=== PATIENT | male | born 1940 | race Caucasian/White ===

== ENCOUNTER → 2017-06-19 | Outpatient (CLI) | payer OTHER ==
[~2017-06-19] MED LIST: ALDACTONE25 MG PO; AMARYL2 MG PO; CARVEDILOL25 MG PO; CELLCEPT500 MG PO; CINNAMON PLUS1 EACH PO; COREG PO; DIABETA 2.5MG2.5 MG PO; FENOFIBRATE160 MG PO; FLOMAX0.4 MG PO; GLUCOPHAGE1000 MG PO; GLUCOTROL5 MG PO; KEPPRA 500 MG500 M1 PO; KEPPRA750 MG PO; LANOXIN 0.250.25 MG PO; LIPITOR80 MG PO; LISINOPRIL10 MG PO; LISINOPRIL20 MG PO; LO-DOSE ASPIRIN81 M1 PO; MOM PO; NORCO 5-325 TA1 EACH PO; POTASSIUM20; PROSCAR 5MG TABL5 MG PO; PROTONIX40 M2 PO; SLOW-MAG64 M1 GT; TYLENOL325 MG PO; VASCEPA1 GM PO
--- NOTE | ~2017-06-19 | 2DMMODE ---
[facility] [place] [address] 2 D/M-MODE ECHOCARDIOGRAM Name: CARLOTTABRADEN WILLIAM Room #: REG [facility]#: [id number] Admission: 06/19/17 Attend Phys: Arjun Nguyen Discharge: Date of : 44 Date of Service: 06/19/17 1138 Report #: [id number] THIS REPORT FOR: //name// APPROVED REPORT Study performed: 06/19/2017 09:09:41 EXAM: Comprehensive 2D, Doppler, and color-flow Echocardiogram Patient Location: Echo lab Status: routine BSA: 2.09 HR: 79 bpm BP: 129/72 mmHg Other Information Study Quality: Good Indications Pacemaker Cardiomyopathy 2D Dimensions RVDd: 31.87 mm LVEF(%): 27.50 (>50%) IVSd: 8.79 (7-11mm) LVOT Diam: 22.80 (18-24mm) LVDd: 66.30 mm PWd: 8.46 (7-11mm) Ascending Ao: 31.97 (22-36mm) LVDs: 57.58 (25-40mm) Aortic Root: 31.57 mm IVC: 18.00 mm Carrillo's LVEF: 27.50 % Volumes Left Atrial Volume (Systole) Single Plane 4CH: 55.04 mL Single Plane 2CH: 48.51 mL LA ESV Index: 27.00 mL/m2 Aortic Valve AoV Peak Vincent.: 1.59 m/s AO Peak Gr.: 10.05 mmHg LVOT Max P.16 mmHg LVOT Max V: 1.02 m/s ROE Vmax: 2.63 cm2 Mitral Valve E/A Ratio: 0.4 MV Decel. Time: 283.78 ms [facility] [place] [place] [address] 2 D/M-MODE ECHOCARDIOGRAM Name: BRADEN LAGUERRE Room #: [facility] Thuy#: [id number] Admission: 06/19/17 Attend Phys: Arjun Nguyen Discharge: Date of : 44 Date of Service: 06/19/17 1138 Report #: [id number] MV E Max Vincent.: 0.46 m/s MV A Vincent.: 1.14 m/s MV PHT: 82.30 ms IVRT: 152.25 ms Pulmonary Valve PV Peak Vincent.: 1.00 m/s PV Peak Gr.: 3.99 mmHg Pulmonary Vein P Vein S: 0.40 m/s P Vein A: 0.29 m/s P Vein D: 0.59 m/s P Vein A Dur.: 96.9 msec P Vein S/D Ratio: 0.68 Tricuspid Valve TR Peak Vincent.: 2.72 m/s RAP Estimate: 5.00 mmHg TR Peak Gr.: 29.67 mmHg PA Pressure: 35.00 mmHg Left Ventricle Left ventricle is moderately dilated. There is normal left ventricular wall thickness. Left ventricular systolic function is severely decreased. LVEF is 25-30%. Transmitral Doppler flow pattern suggests impaired LV relaxation. Right Ventricle The right ventricle is normal size. The right ventricular systolic function is normal. Catheter is present in the right ventricle. Atria The left atrium size is normal. The right atrium size is normal. Aortic Valve Mild aortic valve sclerosis. Trace aortic regurgitation. There is no aortic valvular stenosis. Mitral Valve The mitral valve is normal in structure. Moderate mitral regurgitation. No evidence of mitral valve stenosis. Tricuspid Valve The tricuspid valve is normal in structure. Trace tricuspid regurgitation. PAP is estimated at 35 mmHg. Pulmonic Valve The pulmonary valve is normal in structure. Mild pulmonic [address] [address] 2 D/M-MODE ECHOCARDIOGRAM Name: BRADEN LAGUERRE Room #: REG CL Thuy#: [id number] Admission: 06/19/17 Attend Phys: [facility]: Date of : 44 Date of Service: 06/19/17 1138 Report #: [id number] regurgitation. Great Vessels The aortic root is normal in size. IVC is normal in size and collapses >50% with inspiration. Pericardium There is no pericardial effusion. <Conclusion> Left ventricle is moderately dilated. LVEF is 25-30%. The right ventricle is normal size. Catheter is present in the right ventricle. The right atrium size is normal. Mild aortic valve sclerosis. Trace aortic regurgitation. The mitral valve is normal in structure. Moderate mitral regurgitation. The tricuspid valve is normal in structure. Trace tricuspid regurgitation. PAP is estimated at 35 mmHg. The pulmonary valve is normal in structure. Mild pulmonic regurgitation. There is no pericardial effusion. <ELECTRONICALLY SIGNED> By: Rufus Price MD 06/19/17 1138 1138 1138 Rufus Price MD /INF
== END ==
LOC: CV 09:50
DX: I34.0 Nonrheumatic mitral (valve) insufficiency (principal); I37.1 Nonrheumatic pulmonary valve insufficiency; M17.11 Unilateral primary osteoarthritis, right knee; E11.8 Type 2 diabetes mellitus with unspecified complications; Z95.0 Presence of cardiac pacemaker

== ENCOUNTER → 2017-08-11 | Outpatient (CLI) | payer OTHER ==
[~2017-08-11] VITALS: Ht 177.8 cm; Wt 88.5 kg
[~2017-08-11] MED LIST changes: +AMARYL4 MG PO; +BACTRIM DS TAB1 EACH PO; +DEMADEX20 MG PO; +FOLIC ACID1 MG PO; -SLOW-MAG64 M1 GT; +SLOW-MAG64 M1 PO; +SPIRONOLACTONE25 M1 PO; +TUMS PO; +VITAMIN D3400 UNIT PO
--- NOTE | ~2017-08-11 | P ---
[facility] [place] [place] [address] PROCEDURE REPORT Name: BRADEN LAGUERRE Room #: REG [facility].#: [id number] Admission: 08/11/17 Attend Phys: Arjun Nguyen MD Discharge: Date of : 44 Report #: [id number] THIS REPORT FOR: //name// CC: Jason Fontanez [facility] physician/PCP Arjun Nguyen DATE OF SERVICE: 08/11/2017 IMPLANTABLE CARDIOVERTER DEFIBRILLATOR GENERATOR EXCHANGE HISTORY: The patient is a 77-year-old status post ICD implantation. His ICD is at the elective replacement interval and was here for possible upgrade to a Bi-V ICD with generator exchange. ANESTHESIA: The patient underwent MAC anesthesia with no anesthesia-related complications. DESCRIPTION OF PROCEDURE: The patient underwent informed consent. We discussed the details of the procedure including the risk, which include but not limited to bleeding, infection, vascular damage, cardiac perforation and pneumothorax. He understood these risks and is willing to proceed. As such, the patient was brought to the EP laboratory and unsedated state. Before prepping he underwent a venogram to rule out occlusion of the left axillary vein. Unfortunately, there was evidence of an occlusion noted at the insertion sites of the lead into the subclavian vessel. There was collateralization around this occlusion, but the distance between the distal occlusion and site of collateralization was a large distance, which I do not think I could transverse. As such, I discussed these findings with the and we decided to proceed with just an ICD generator exchange, which is what had been performed last time several years ago. Of note, under fluoroscopy, the patient does have a dual-chamber ICD and there is an LV lead that appears to be dislodged and is likely sitting at the floor of the right atrium. Of note, this has been at this site since its initial implantation in 2004. As such, the patient was prepped and draped in a sterile fashion, received IV antibiotics. I injected lidocaine and made an incision. The chronic pocket was opened. The old device was removed from the pocket and disconnected from the leads. The new device was connected and the leads tested and found to be functioning normally. The patient does have a [employer] Jayce lead. There were no issues with noise or impedances on any portion of the lead. A new device was placed in the pocket. The pocket was irrigated with vancomycin. The pocket was closed in 3 layers using 2-0 for the deep layer, 3-0 for the mid layer and 4-0 for the subcuticular. Surgical glue was placed to the outer skin layer. The patient awoke neurologically and hemodynamically intact. No complications and no significant bleeding. The explanted device was a [employer] model number [id number], serial number [id number] [id number] PROCEDURE REPORT Name: BRADEN LAGUERRE Room #: REG CL Thuy#: [id number] Admission: 08/11/17 Attend Phys: Arjun Nguyen MD Discharge: Date of : 44 Report #: [id number], implanted on 08/28/2009. The newly implanted device was [employer] model number [id number], serial number [id number]. The atrial lead was a Medtronic model number 5076, serial number [id number]. The RV lead was a Medtronic model number 6947, serial number [id number]. The LV lead was a Med[employer]onic model number 4194, serial number [id number]. These 3 existing leads were all implanted on 06/24/2004. The atrial lead demonstrated a P-wave of 3.5 millivolts, pacing impedance of 440 ohms and the pacing threshold of 0.5 volts at 0.5 milliseconds. The RV lead demonstrated an R-wave of 11.6 millivolts, pacing impedance 700 and a pacing impedance of 0.75 volts at 0.5 milliseconds. The shock impedances on this lead were normal. The LV lead has been previously capped and left in the pocket. The device was programmed to the DDD 60-120 mode. The VF zone was set at greater than 214 beats per minute. The VT2 zone was set at 187 beats per minute and the VT1 zone was set at 166 beats per minute. CONCLUSIONS: 1. Successful ICD generator exchange. 2. Satisfactory atrial and right ventricular pacing and sensing thresholds. 3. No attempt at upgrade to a Bi-V ICD given the long occlusion noted on venography. By: [id number] Arjun Nguyen MD /nt
[2017-08-11 10:18] VITALS: BP 101/53
[2017-08-11 11:00] LABS: HEMATOCRIT 42.9 % (42.0-52.0); HEMOGLOBIN 14.5 gm/dL (14.0-18.0); MCH 32.6 pg (26.0-34.0); MCHC 33.9 g/dL (28.0-37.0); MCV 96.2 fL (80.0-100.0); RBC 4.46 mil/uL (4.50-6.00); RDW 14.8 % (10.5-14.5); WBC 6.8 thou/uL (4.0-11.0)
[2017-08-11 11:11] LABS: CALCIUM 10.1 mg/dL (8.5-10.1); CREATININE 1.2 mg/dL (0.7-1.3); POTASSIUM 4.4 mmol/L (3.5-5.1)
[2017-08-11 11:13] LABS: INR 1.1; PROTIME 11.6 Seconds (9.3-11.4)
== END | disposition home or self-care (01) ==
LOC: CATH 09:49
PROVIDERS: Internal Medicine Cardiovascular Disease
DX: Z45.02 Encounter for adjustment and management of automatic implantable cardiac defibrillator (principal); I11.0 Hypertensive heart disease with heart failure; I50.9 Heart failure, unspecified; E78.5 Hyperlipidemia, unspecified; E11.9 Type 2 diabetes mellitus without complications; I42.9 Cardiomyopathy, unspecified; I48.91 Unspecified atrial fibrillation; M19.90 Unspecified osteoarthritis, unspecified site; G47.33 Obstructive sleep apnea (adult) (pediatric); Z79.01 Long term (current) use of anticoagulants; Z95.5 Presence of coronary angioplasty implant and graft; Z98.890 Other specified postprocedural states; Z79.899 Other long term (current) drug therapy; Z96.652 Presence of left artificial knee joint; Z79.82 Long term (current) use of aspirin
CPT/HCPCS: 62110; 62900; 70005

== ENCOUNTER 2017-12-28 06:45 | Observation (INO) | payer OTHER ==
[~2017-12-28] VITALS: Ht 180.3 cm; Wt 95.3 kg
--- NOTE | ~2017-12-28 | EKG ---
[place] [address] [facility] [place] [address] ELECTROCARDIOGRAM REPORT Name: BRADEN LAGUERRE Room #: REG [id number] Admission: 12/28/17 Attend Phys: Arjun Nguyen MD Discharge: Date of : 44 Report #: [id number] THIS REPORT FOR: //name// [facility] Test Date: 2017-12-28 Test Time: 08:22:55 Pat Name: BRADEN LAGUERRE Department: Room: Gender: [employer] Officer: : 1940 Requested By: Arjun Nguyen Order Number: [id number] MD: Jason Fontanez Measurements Intervals [place] Rate: 80 P: 69 MT: 175 QRS: -32 QRSD: 166 T: 185 QT: 431 QTc: 498 Interpretive Statements Sinus rhythm Ventricular premature complex Left bundle branch block Compared to ECG 06/17/2014 12:06:05 Ventricular premature complex(es) now present Electronically Signed On 12-28-2017 8:47:08 CDT by Jason Fontanez [email or web address] <ELECTRONICALLY SIGNED> By: Jason Fontanez MD, [facility] 12/28/17 0847 1 1 Jason Fontanez MD, [facility] /EPI
--- NOTE | ~2017-12-28 | P ---
[facility] [place] [address] [place] [address] PROCEDURE REPORT Name: BRADEN LAGUERRE Room #: 212-P [facility] M.Chau#: [id number] Admission: 12/28/17 Attend Phys: Arjun Nguyen MD Discharge: Date of : 44 Report #: [id number] THIS REPORT FOR: //name// CC: ADE Fontanez FAM unknown Arjun Nguyen DATE OF SERVICE: 12/28/2017 PREOPERATIVE DIAGNOSES: 1. Nonischemic cardiomyopathy. 2. Left bundle-branch block. 3. [place] [employer] functional class 3 heart failure. 4. Recent extraction of an ICD due to infection. HISTORY: The patient is a 77-year-old male with history of nonischemic cardiomyopathy, who has an EF of less than 35%, left bundle-branch block, and [place] [employer] functional class 2-3 heart failure symptoms. He recently underwent ICD generator exchange. At that time, he was going to undergo upgrade to a biventricular ICD, but was found to have an occlusion on the left side. 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 That hospitalization for extraction was complicated by worsening renal insufficiency. He has finished a course of antibiotics and is here for biventricular ICD implantation on the right side. ANESTHESIA: The patient underwent MAC anesthesia with no anesthesia-related complications. PROCEDURE: The patient underwent informed consent. We discussed the details of the procedure including the risks, which include but not limited to bleeding, infection, vascular damage, cardiac perforation, and pneumothorax. He understood these risks and is willing to proceed. The patient was brought to the EP laboratory in the fasting and nonsedated state and prepped and draped in a sterile fashion. He underwent a right-sided venogram, which showed patency of the right axillary vein and superior vena cava. He was placed on IV vancomycin for antibiotic prophylaxis, prepped and draped in a sterile fashion. I then injected lidocaine at the area below the right clavicle. Incision was made and a pocket was created over the prepectoral fascia. Access was obtained three times to the right axillary vein using the extrathoracic approach with the sheaths positioned using the modified Seldinger technique. Next, the RV lead was placed in the right ventricular apex with adequate pacing and sensing thresholds. An atrial lead was placed on the right [facility] [address] [place] [address] PROCEDURE REPORT Name: BRADEN LAGUERRE Room #: 212-P [id number] Admission: 12/28/17 Attend Phys: Arjun Nguyen MD Discharge: Date of : 44 Report #: [id number] atrial appendage as well. These leads were then sutured to the prepectoral fascia. Next, I placed a coronary sinus guide sheath into the right atrium, and after a few minutes, obtained access to the middle cardiac vein. This middle cardiac vein filled the coronary sinus proper retrograde and I was able to position my sheath into the coronary sinus proper. Injection from the coronary sinus demonstrated that there was a nice large posterolateral branch and I was able to deliver a quadripolar lead into the distal aspect of this vessel. There was adequate pacing and sensing thresholds throughout. The guide sheath was split and the lead remained in position. The LV lead was sutured to the prepectoral fascia using Ethibond as well. The leads were connected to the device and tested, and all leads were found to be functioning normally. The pocket was irrigated with vancomycin and then the pocket was closed in 3 layers using 2-0 for the deep layer, 3-0 for the middle layer, and 4-0 for the subcuticular. Surgical glue was placed to the outer skin layer. The patient awoke hemodynamically and neurologically intact with no complications and no significant bleeding. The implanted ICD was a [employer] model # [id number], serial #[id number]. The atrial lead was a [employer] model #2088TC, 46 cm, serial #[id number] with a P-wave of 1 millivolt, pacing impedance of 480 ohms, and a pacing threshold 0.75 volts at 0.5 milliseconds. The RV lead was a [employer] model #7120, 58 cm, serial #[id number]. This lead demonstrated R waves greater than 12 millivolts, pacing impedance of 580 ohms, and the pacing threshold 0.5 volts at 0.5 milliseconds. The LV lead demonstrated a basal pacing threshold of 2 volts at 1 millisecond with pacing impedance of 710 ohms. The device was programmed to the DDD 60-130 mode. The LV lead was pacing at its most basal configuration with the LV lead pacing 55 milliseconds preRV pacing. This pacing configuration was utilized as it resulted in the most narrowing of the QRS complex down to 130 milliseconds. The ICD therapies were programmed with a VT zone of 180-220 beats per minute with ATP x 6 followed by max output shocks. The VF zone was set at greater than 222 beats per minute with ATP while charging followed by max output shocks. CONCLUSIONS: 1. Successful biventricular ICD implantation. 2. Satisfactory atrial, right ventricular, and left ventricular pacing and sensing thresholds. By: [id number] MD gee Alanis
[2017-12-28 07:24] VITALS: BP 113/64
[2017-12-28 07:27] LABS: ABSOLUTE NEUTROPHILS 2.7 thou/uL (1.4-8.2); BASOPHILS 1.6 % (0.0-2.0); EOSINOPHILS 10.3 % (0.0-3.0); HEMATOCRIT 41.5 % (42.0-52.0); HEMOGLOBIN 13.8 gm/dL (14.0-18.0); LYMPHOCYTES 37.8 % (24.0-44.0); MCH 32.4 pg (26.0-34.0); MCHC 33.2 g/dL (28.0-37.0); MCV 97.8 fL (80.0-100.0); MONOCYTES 11.1 % (1.0-8.0); PLATELET COUNT 180 thou/uL (150-400); POLYS 39.2 % (36.0-66.0); RBC 4.25 mil/uL (4.50-6.00); RDW 14.3 % (10.5-14.5); WBC 6.8 thou/uL (4.0-11.0)
[2017-12-28] MEDS ORDERED: REPATHA SU140 MG/1 M IM (07:28)
[2017-12-28] MEDS ORDERED: CARVEDILOL3.125 MG PO (07:28)
[2017-12-28] MEDS ORDERED: FENOFIBRATE160 MG PO (07:31)
[2017-12-28 07:36] LABS: CALCIUM 9.4 mg/dL (8.5-10.1); CREATININE 1.4 mg/dL (0.7-1.3); POTASSIUM 4.4 mmol/L (3.5-5.1)
[2017-12-28] MEDS ORDERED: UNICOMPLEX M TA1 TA1 PO (07:37)
[2017-12-28] MEDS ORDERED: CRESTOR40 MG PO (07:37)
[2017-12-28 07:41] LABS: ALBUMIN 3.9 g/dL (3.4-5.0); TOTAL BILIRUBIN 0.5 mg/dL (<0.1-1.0); TOTAL PROTEIN 7.2 g/dL (6.4-8.2)
[2017-12-28 07:50] LABS: APTT 28.7 Seconds (24.5-32.8); INR 1.1
[2017-12-28 17:13] VITALS: BP 93/54
[2017-12-28 19:58] VITALS: BP 102/60
[2017-12-29 00:17] VITALS: BP 96/55
[2017-12-29 04:12] VITALS: BP 96/70
[2017-12-29 07:22] VITALS: BP 112/63
[2017-12-29 12:01] VITALS: BP 135/58
[2017-12-29 12:31] VITALS: BP 135/58
== END 2017-12-29 13:40 | disposition home or self-care (01) ==
LOC: CATH 06:45 → 2N 12:37 → ENTRNSPT 12-29 13:30 → 2N 12-29 13:40
PROVIDERS: Internal Medicine Cardiovascular Disease
DX: I42.8 Other cardiomyopathies (principal); I50.22 Chronic systolic (congestive) heart failure; T82.7XXD Infection and inflammatory reaction due to other cardiac and vascular devices, implants and grafts, subsequent encounter; E78.00 Pure hypercholesterolemia, unspecified; G47.30 Sleep apnea, unspecified; M19.90 Unspecified osteoarthritis, unspecified site; I34.0 Nonrheumatic mitral (valve) insufficiency; Z98.890 Other specified postprocedural states; Z72.89 Other problems related to lifestyle; Z95.810 Presence of automatic (implantable) cardiac defibrillator

== ENCOUNTER → 2019-04-30 | Outpatient (CLI) | payer OTHER ==
[~2019-04-30] MED LIST changes: +CARVEDILOL3.125 MG PO; +CRESTOR40 MG PO; +REPATHA SU140 MG/1 M IM; +UNICOMPLEX M TA1 TA1 PO
== END ==
LOC: SJCVC 14:33
DX: R94.31 Abnormal electrocardiogram [ECG] [EKG] (principal); I48.0 Paroxysmal atrial fibrillation; I42.9 Cardiomyopathy, unspecified; I50.42 Chronic combined systolic (congestive) and diastolic (congestive) heart failure; E78.5 Hyperlipidemia, unspecified; I44.7 Left bundle-branch block, unspecified; G04.90 Encephalitis and encephalomyelitis, unspecified; Z95.810 Presence of automatic (implantable) cardiac defibrillator

== ENCOUNTER → 2020-01-13 | Outpatient (CLI) | payer OTHER | LOC: SJCVCIMAG 07:13 | PROVIDERS: ATTEND Internal Medicine | DX: I08.8 Other rheumatic multiple valve diseases (principal); R94.31 Abnormal electrocardiogram [ECG] [EKG]; I42.9 Cardiomyopathy, unspecified; I48.0 Paroxysmal atrial fibrillation; I50.22 Chronic systolic (congestive) heart failure; I44.7 Left bundle-branch block, unspecified; G04.90 Encephalitis and encephalomyelitis, unspecified; G47.33 Obstructive sleep apnea (adult) (pediatric); Z95.810 Presence of automatic (implantable) cardiac defibrillator; Z79.899 Other long term (current) drug therapy ==

== ENCOUNTER → 2020-07-13 | Outpatient (CLI) | payer OTHER | LOC: SJCVC 13:32 | PROVIDERS: ATTEND Internal Medicine | DX: R94.31 Abnormal electrocardiogram [ECG] [EKG] (principal); I42.9 Cardiomyopathy, unspecified; I48.0 Paroxysmal atrial fibrillation; I50.22 Chronic systolic (congestive) heart failure; E78.5 Hyperlipidemia, unspecified; I44.7 Left bundle-branch block, unspecified; G04.90 Encephalitis and encephalomyelitis, unspecified; G47.33 Obstructive sleep apnea (adult) (pediatric); E11.9 Type 2 diabetes mellitus without complications; E78.00 Pure hypercholesterolemia, unspecified; G47.30 Sleep apnea, unspecified; Z95.810 Presence of automatic (implantable) cardiac defibrillator; Z98.890 Other specified postprocedural states; Z88.8 Allergy status to other drugs, medicaments and biological substances; Z79.899 Other long term (current) drug therapy; Z82.49 Family history of ischemic heart disease and other diseases of the circulatory system ==

== ENCOUNTER → 2021-01-13 | Outpatient (CLI) | payer OTHER | LOC: SJCVC 13:11 | PROVIDERS: ATTEND Internal Medicine | DX: R94.31 Abnormal electrocardiogram [ECG] [EKG] (principal); I42.9 Cardiomyopathy, unspecified; I48.0 Paroxysmal atrial fibrillation; I50.22 Chronic systolic (congestive) heart failure; E78.5 Hyperlipidemia, unspecified; E11.9 Type 2 diabetes mellitus without complications; E78.00 Pure hypercholesterolemia, unspecified; I44.7 Left bundle-branch block, unspecified; G04.90 Encephalitis and encephalomyelitis, unspecified; G47.33 Obstructive sleep apnea (adult) (pediatric); Z95.810 Presence of automatic (implantable) cardiac defibrillator; Z88.8 Allergy status to other drugs, medicaments and biological substances; Z79.899 Other long term (current) drug therapy; Z72.89 Other problems related to lifestyle ==